=== PATIENT | male | born 1965 | race Caucasian/White ===

== ENCOUNTER 2016-06-16 15:27 | Outpatient (CLI) | payer OTHER ==
[~2016-06-16] VITALS: Ht 180.3 cm; Wt 92.7 kg
[2016-06-16 12:50] VITALS: BP 120/63; PULSE 130; RESP 18; Ht 180.3 cm; Wt 92.7 kg
--- NOTE | 2016-06-16 15:41 | PN ---
Date/Time of Note Date/Time of Note DATE: 06/16/16 TIME: 15:40 Outpatient Progress Note Chief Complaint GI bleeding/PUD/hepatic encephalopathy/cirrhosis/gallstones/anemia/alcohol abuse /malnutrition HPI GI bleed/patient had a recent GI bleed, patient was recently hospitalized, no lack stool, no nausea vomiting, no abdominal pain, PUD/no hematemesis or melena, patient has slight abdominal distention, no epigastric discomfort, no heartburn, patient had finish the medication, patient has no Protonix, Hepatitic encephalopathy/patient has history of encephalopathy, patient was taking lactulose, patient ran out of the leg shows, patient states he is off sometime, Gallstone/no nausea or vomiting, no jaundice, Anemia/no hematemesis or melena, no bruises, ecchymosis, patient did have bleeding recently, Alcohol abuse/patient history of alcohol abuse, patient has cirrhosis of liver, patient has abdominal distention, patient had alcohol a beer today before he came to the office, Malnutrition/patient has malnutrition, no nausea or vomiting, has ascites, poor appetite, Review of Systems Const: No Fever, no chills, no Wt. loss, no Fatigue, normal appetite, no diaphoresis. Eyes: No pain, no discharge, no redness, no visual change, no foreign body. ENT: No pain, no bleeding, no congestion, no sore throat, no dysphagia, no discharge or rhinitis. Lymph: No adenopathy, no tender nodes, no lymphedema. Resp: No SOB, no cough, no sputum, no wheezing, no chest pain. CV: No chest pain, no palpitaions, no STEWART, no PND, no edema. GI: Normal appetite, no pain, no nausea, no vomiting, no diarrhea, no blood, no constipation. Abdominal distention, ascites present, : No frequency, no urgency, no dysuria, no hematuria, no flank pain, no discharge, no bleeding. Musc: General eyes bone/joint pain, mild back pain, no neck pain, no knee pain, no restricted ROM. Skin: No rash, no skin lesions, no erythema, no laceration, no bruising, no pruritus. Neuro: No MCCONNELL, no dizziness, no syncope, no seizure, no focal-weakness. Endo: No polyuria, no polydypsia, no dry-skin, no temp-intolerance. Psych: No hallucinations, no depression, no anxiety, no suicidal ideation. Ext: No edema, no pain, no ulcer, no weakness. Physical Exam Vital Signs Date Time Temp Pulse Resp B/P Pulse Ox O2 Delivery O2 Flow Rate FiO2 06/16/16 12:50 100.0 130 18 120/63 98 Room Air General Appearance: A 51 year-old male who appears well-developed, well- nourished, in no acute distress. HEENT: Head normocephalic, atraumatic. Pupils equal, round, reactive to light and accommodate. Sclerae are no jaundice. Nasal turbinates pink without erythema or nasal discharge. Mucous membranes pink and moist without lesions. Oropharynx clear without any exudate or discharge. NECK: Supple. Trachea midline, No thyromegaly, No cervical lymphadenopathy, No mass, No carotid bruits, No JVD, Carotid pulses 2+ bilaterally. PULMONARY: Clear to auscultaion bilaterally, No retractions, Chest expansion symmetric bilaterally, no rales, no ronchi, no dulness on percussion. CARDIAC: Normal SI and S2, Regular rate and rythm, no murmur, gallop, or rub. GASTROINTESTINAL: Abdomen is soft, non-tender, Non Rigid, No distention, Positive bowel sounds x4 quadrants, Liver normal. Abdominal distention, ascites present, SKIN: Warm, dry, no rash, no bruise, no echmosis., No laceration, EXTREMITIES: Bilateral lower extremities normal, no edema, no phlabitus, pulse palpable, no contracture. MUSCULOSKELETAL: Spine Normal, Non-tender, Normal range of motion, No swelling, no deformity, no clubbing, or cyanosis, the patient has no edema to bilateral lower extremities, dorsalis pedis pulses palpable bilaterally. NEUROLOGIC: The patient is awake, alert, oriented, responding to yes/no questions appropriately, moving all extremities, cranial nerve intact, normal strenght, normal power, normal coordination, normal gait. Allergies Coded Allergies: aspirin (Verified Allergy, Unknown, 06/16/16) PMH GI bleed,/PUD/encephalopathy/cirrhosis/gallstones/anemia/alcohol abuse/ malnutrition/electrolyte imbalance/hepatomegaly/thrombocytopenia/leukopenia Social Hx Patient used to smoke marijuana years ago, patient has been drinking beer for many many years, patient had 1 beer today before patient came to the office, Family Hx Noncontributory Assessment/Plan Impression GI bleeding resolved/PUD/A cancer probably/cirrhosis/gallstones/anemia/alcohol abuse/malnutrition/hepatosplenomegaly/to monocytopenia and leukopenia Plan Patient education done about alcohol, told that if he does not stop drinking he is go to soon, and he has to make his decision, patient had a beer before he came to the office today, patient was to go back to smoking marijuana, explained he is replacing one bad habit with another bad habit, Patient education done about cirrhosis and GI bleed and alcoholism, patient explained that if he does not stop drinking I told him I see his end close by, patient understands it, Patient is to follow with alcohol and on numerous or any place where he can get help to stop drinking, Patient encouraged to follow with the primary care physician, if any emergency go to the emergency room Deeth CBC CMP serum ammonia level, Protonix 40 mg by mouth daily, #30 multivitamin 1 tablet by mouth daily, Lactulose 30 g by mouth daily, Medications Home Meds Reported Medications Levetiracetam* (Keppra*) 500 Mg/5 Ml Solution, 500 MG PO BID, BOTTLE 06/16/16 Thiamine* (Thiamine*) 100 Mg Tablet, 100 MG PO DAILY, TAB 06/16/16 Hydrocodone/Acetaminophen ([place] 5-325 Tablet) 1 Each Tablet, 1 EACH PO Q8, TAB 06/16/16 MILLA SINGH MD Jun 16, 2016 15:40
[2016-06-16] MEDS ORDERED: THIA100T10 PO (15:42)
[2016-06-16] MEDS ORDERED: HYDR-906 PO (15:42)
[2016-06-16] MEDS ORDERED: LEVE500S9 PO (15:42)
== END 2016-06-16 16:31 | disposition home or self-care (01) ==
LOC: DCC 15:27
PROVIDERS: ATTEND Internal Medicine
DX: K92.2 Gastrointestinal hemorrhage, unspecified (principal); K27.9 Peptic ulcer, site unspecified, unspecified as acute or chronic, without hemorrhage or perforation; K74.60 Unspecified cirrhosis of liver; K80.80 Other cholelithiasis without obstruction; D64.9 Anemia, unspecified; F10.10 Alcohol abuse, uncomplicated; F12.10 Cannabis abuse, uncomplicated
CPT/HCPCS: G0463

== ENCOUNTER 2017-02-24 20:44 | Inpatient (IN) | payer MEDICAID, OTHER ==
[~2017-02-24] VITALS: Ht 180.3 cm; Wt 95.1 kg
[~2017-02-24 20:44] MED LIST: HYDR-906 PO; LEVE500S8 PO; THIA100T10 PO
[2017-02-24 22:25] LABS: URINE BLOOD (Dip) POC Trace-lysed (NEGATIVE)
[2017-02-24] MEDS ORDERED: PANTOPRAZOLE IV 80 MG in SOD CHLORIDE 0.9% 100 ML IV STA (22:28)
[2017-02-24] MEDS ORDERED: PANTOPRAZOLE IV 80 MG in SOD CHLORIDE 0.9% 100 ML IVPB STA (22:28)
[2017-02-24] MEDS ORDERED: SOD CHLORIDE 0.9% 500 ML IV STA (22:28)
[2017-02-24] MEDS ORDERED: morphine 2 MG INJ IV STA (22:44)
[2017-02-24] MEDS ORDERED: ONDANSETRON 4 MG INJ IV STA (22:44)
[2017-02-24] MEDS ORDERED: LEVETIRACETAM 500 MG TAB PO ONE (23:00)
[2017-02-24 23:16] LABS: ABNORMAL IP MESSAGE 1; BASOPHILS % 0.4 % (0.0-2.0); EOSINOPHILS # 0.1 10^3/ul (0.0-0.5); EOSINOPHILS % 0.7 % (0.0-7.0); HEMATOCRIT 27.1 % (42.0-52.0); HEMOGLOBIN 9.3 g/dl (14.0-18.0); LYMPHOCYTES # 3.1 10^3/ul (0.8-2.9); LYMPHOCYTES % 32.4 % (15.0-51.0); MEAN CORPUSCULAR HEMOGLOBIN 27.8 pg (29.0-33.0); MEAN CORPUSCULAR HGB CONC 34.3 g/dl (32.0-37.0); MEAN CORPUSCULAR VOLUME 80.9 fl (82.0-101.0); MEAN PLATELET VOLUME 10.8 fl (7.4-10.4); MONOCYTE # 1.3 10^3/ul (0.3-0.9); MONOCYTES % 12.9 % (0.0-11.0); NEUTROPHIL # 5.2 10^3/ul (1.6-7.5); NEUTROPHILS % 53.3 % (39.0-77.0); PLATELET COUNT 92 10^3/UL (140-415); POSITIVE DIFF @See below; RED BLOOD COUNT 3.35 10^6/ul (4.70-6.10); RED CELL DISTRIBUTION WIDTH 16.4 % (11.5-14.5); WHITE BLOOD COUNT 9.7 10^3/ul (4.8-10.8)
[2017-02-24 23:20] LABS: INR 1.53; PROTIME 18.5 Sec (12.2-14.2); PT RATIO 1.4
[2017-02-24 23:21] LABS: PARTIAL THROMBOPLASTIN TIME 34.5 Sec (25.0-35.0)
[2017-02-24 23:22] LABS: ALANINE AMINOTRANSFERASE 85 IU/L (13-69); ALBUMIN 3.4 g/dl (3.3-4.9); ALBUMIN/GLOBULIN RATIO 0.91; ALKALINE PHOSPHATASE 148 IU/L (42-121); ANION GAP 12 (8-16); ASPARTATE AMINO TRANSFERASE 157 IU/L (15-46); BILIRUBIN,INDIRECT 0.9 mg/dl (0-1.1); BILIRUBIN,TOTAL 0.9 mg/dl (0.2-1.3); BLOOD UREA NITROGEN 4 mg/dl (7-20); CALCIUM 8.7 mg/dl (8.4-10.2); CARBON DIOXIDE 24 mmol/L (21-31); CHLORIDE 93 mmol/L (97-110); CREATININE 0.55 mg/dl (0.61-1.24); GLUCOSE 97 mg/dl (70-220); POTASSIUM 3.4 mmol/L (3.5-5.1); SODIUM 126 mmol/L (135-144); TOTAL PROTEIN 7.1 g/dl (6.1-8.1)
[2017-02-24 23:36] LABS: TROPONIN-I < 0.012 ng/ml (0.00-0.12)
--- NOTE | 2017-02-24 23:58 | RADRPT ---
PROCEDURE: XR Chest. CLINICAL INDICATION: Upper GI bleed. Pain. TECHNIQUE: Single frontal chest x-ray. COMPARISON: None available. FINDINGS: The lungs volumes are diminished. There are compressive changes with vascular crowding and basilar atelectasis. No pneumothorax, pleural effusion or consolidation is noted. The cardiomediastinal si lhouette is unremarkable. No acute osseous abnormality is noted. IMPRESSION: 1. Low lung volumes with compressive changes and basilar atelectasis. 2. Otherwise, no acute cardiopulmonary abnormality. RPTAT: HH .Raleigh Camacho MD, MD Date Time Electronically viewed and signed by .Raleigh Camacho MD, on 02/24/2017 23:58 .N/
[2017-02-25] VITALS (17 sets, daily range): BP systolic 108–124; BP diastolic 47–70; PULSE 74–112; RESP 12–24; TEMP 98.6; Ht 180.3 cm; Wt 95.1 kg
--- NOTE | 2017-02-25 01:21 | ERD ---
ER Documentation Chief Complaint Date/Time DATE: 02/25/17 TIME: 01:19 Chief Complaint abd pain w/ cirrhosis, states not taking seizure meds for 2 days, headache HPI This is a [age]-year-old male with history of alcoholism and cirrhosis who comes in with complaints of dark tarry stools over the past 2 days. He admits to drinking alcohol recently. No fevers no chills. Mild diffuse abdominal pain. No nausea no vomiting no chills. No other current complaints. ROS All systems reviewed and are negative except as per history of present illness. Medications Home Meds Reported Medications Levetiracetam* (Keppra*) 500 Mg/5 Ml Solution, 500 MG PO BID, BOTTLE 06/16/16 Thiamine* (Thiamine*) 100 Mg Tablet, 100 MG PO DAILY, TAB 06/16/16 Hydrocodone/Acetaminophen ([place] 5-325 Tablet) 1 Each Tablet, 1 EACH PO Q8, TAB 06/16/16 Allergies Allergies: Coded Allergies: aspirin (Verified Allergy, Unknown, 06/16/16) PMhx/Soc History of Surgery: No Anesthesia Reaction: No Hx Neurological Disorder: Yes (seizure d/o ) Hx Respiratory Disorders: No Hx Cardiac Disorders: Yes (htn, liver cirrhosis ) Hx Psychiatric Problems: No Hx Miscellaneous Medical Probl: No Hx Alcohol Use: Yes (daily ) Hx Substance Use: No Hx Tobacco Use: Yes Smoking Status: Current every day smoker Physical Exam Vitals Vital Signs Date Time Temp Pulse Resp B/P Pulse Ox O2 Delivery O2 Flow Rate FiO2 02/24/17 22:24 98.2 82 19 132/82 96 Room Air 02/24/17 20:57 98.2 124 20 127/73 98 Physical Exam Const: [] Head: Atraumatic Eyes: Normal Conjunctiva ENT: Normal External Ears, Nose and Mouth. Neck: Full range of motion..~ No meningismus. Resp: Clear to auscultation bilaterally Cardio: Regular rate and rhythm, no murmurs Abd: Soft, non tender, non distended. Normal bowel sounds Skin: No petechiae or rashes Back: No midline or flank tenderness Ext: No cyanosis, or edema Neur: Awake and alert Psych: Normal Mood and Affect Result Diagram: 02/24/17 2215 02/24/17 2215 Results 24 hrs Laboratory Tests Test 02/24/17 22:15 02/24/17 22:31 White Blood Count 9.710^3/ul Red Blood Count 3.3510^6/ul Hemoglobin 9.3g/dl Hematocrit 27.1% Mean Corpuscular Volume 80.9fl Mean Corpuscular Hemoglobin 27.8pg Mean Corpuscular Hemoglobin Concent 34.3g/dl Red Cell Distribution Width 16.4% Platelet Count 9210^3/UL Mean Platelet Volume 10.8fl Neutrophils % 53.3% Lymphocytes % 32.4% Monocytes % 12.9% Eosinophils % 0.7% Basophils % 0.4% Nucleated Red Blood Cells % 0.0/100WBC Neutrophils # 5.210^3/ul Lymphocytes # 3.110^3/ul Monocytes # 1.310^3/ul Eosinophils # 0.110^3/ul Basophils # 0.010^3/ul Nucleated Red Blood Cells # 0.010^3/ul Prothrombin Time 18.5Sec Prothrombin Time Ratio 1.4 INR International Normalized Ratio 1.53 Activated Partial Thromboplast Time 34.5Sec Sodium Level 126mmol/L Potassium Level 3.4mmol/L Chloride Level 93mmol/L Carbon Dioxide Level 24mmol/L Anion Gap 12 Blood Urea Nitrogen 4mg/dl Creatinine 0.55mg/dl Glucose Level 97mg/dl Calcium Level 8.7mg/dl Total Bilirubin 0.9mg/dl Direct Bilirubin 0.00mg/dl Indirect Bilirubin 0.9mg/dl Aspartate Amino Transf (AST/SGOT) 157IU/L Alanine Aminotransferase (ALT/SGPT) 85IU/L Alkaline Phosphatase 148IU/L Troponin I < 0.012ng/ml Total Protein 7.1g/dl Albumin 3.4g/dl Globulin 3.70g/dl Albumin/Globulin Ratio 0.91 Bedside Urine pH (LAB) 6.5 Bedside Urine Protein (LAB) Negative Bedside Urine Glucose (UA) Negative Bedside Urine Ketones (LAB) Trace Bedside Urine Blood Trace-lysed Bedside Urine Nitrite (LAB) Negative Bedside Urine Leukocyte Esterase (L Negative Current Medications Medications (Trade) Dose Ordered Sig/Dwayne Route PRN Reason Start Time Stop Time Status Last Admin Dose Admin Sodium Chloride 500 ml @ 500 mls/hr Q1H STAT IV 02/24/17 22:28 02/24/17 23:27 DC 02/24/17 22:28 Pantoprazole 80 mg/Sodium Chloride 100 ml @ 400 mls/hr ONCE STAT IVPB 02/24/17 22:28 02/24/17 22:42 DC 02/24/17 23:13 Pantoprazole/ Sodium Chloride (Protonix Iv/NS) 100 ml @ 10 mls/hr ONCE STAT IV 02/24/17 22:28 02/25/17 08:27 02/24/17 22:28 Morphine Sulfate (morphine) 2 mg ONCE STAT IV 02/24/17 22:44 02/24/17 22:45 DC 02/24/17 22:58 Ondansetron HCl (Zofran Inj) 4 mg ONCE STAT IV 02/24/17 22:44 02/24/17 22:45 DC 02/24/17 22:58 Levetiracetam (Keppra) 1,000 mg ONCE ONCE PO 02/24/17 23:00 02/24/17 23:01 DC 02/24/17 23:13 Procedures/MDM EKG: Rate/Rhythm: [Normal Sinus Rhythm] QRS, ST, T-waves: [No changes consistent w/ acute ischemia] Impression: [No evidence of ischemia or arrhythmia] Chest X-ray 1V Interpreted by me: Soft Tissue: No acute abnormalities Bones: No acute abnormalities Mediastinum/Cardiac Silhouette/Lungs: [No acute abnormalities] Medical decision-making: Very pleasant patient comes in with complaints of dark tarry stools. Given his history and low platelet count after the patient is being admitted for further evaluation and management and observation. Patient will be admitted to hospitalist. Departure Diagnosis: Primary Impression: GI bleed GI bleed type/associated pathology: unspecified gastrointestinal hemorrhage type Qualified Code: K92.2 - Gastrointestinal hemorrhage, unspecified gastrointestinal hemorrhage type Condition: Serious JENNIFERTOM FERREIRAGold Feb 25, 2017 01:21
[2017-02-25] MEDS ORDERED: SOD CHLORIDE 0.9% 1,000 ML IV SCH (02:57)
[2017-02-25] MEDS ORDERED: ONDANSETRON 4 MG INJ IV PRN (03:00)
[2017-02-25] MEDS ORDERED: morphine 2 MG INJ IV PRN (03:00)
[2017-02-25] MEDS ORDERED: NACL 0.9% 3 ML SYG IV SCH (03:00)
[2017-02-25] MEDS ORDERED: ALBUMIN HUMAN 25% 100 ML IV ONE (04:00)
[2017-02-25] MEDS ORDERED: ALBUMIN HUMAN 5% 250 ML IV ONE (04:00)
[2017-02-25] MEDS ORDERED: LORAZEPAM 2 MG INJ IV PRN (06:30)
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
[2017-02-25 08:14] LABS: HAAIG REFLEX REFLEX FILED
--- NOTE | 2017-02-25 08:26 | RADRPT ---
PROCEDURE: US Abdomen. CLINICAL INDICATION: Cirrhosis. Abdominal distension. TECHNIQUE: Multiple real-time images were acquired of the patient's abdomen and retroperitoneum ut ilizing a high resolution transducer. COMPARISON: None FINDINGS: The liver demonstrates slightly increased echogenicity, coarsened echotexture, nodular borders and e nlarged size measuring 18.6 cm. No focal hepatic lesions. Patent portal vein. Nondistended gallbladd er containing stones. Gallbladder wall is thickened measuring 6.8 mm. No intrahepatic or extrahepa tic biliary dilatation. The common bile duct measures 6 mm in maximal dimension. The visualized po rtions of the pancreas are normal. Enlarged spleen size and normal echogenicity measuring 17.8 cm.. The kidneys are normal size, and demonstrate normal echogenicity and morphology. The right kidney m easures 10.8 cm. The left kidney measures 13.5 cm. No hydronephrosis or perinephric fluid collecti ons. There are no areas of increased echogenicity to suggest nephrolithiasis. Normal caliber aorta and IVC. No peritoneal free fluid. IMPRESSION: 1. Cirrhotic appearance of the liver. 2. Splenomegaly likely secondary to portal hypertension. 3. Nondistended gallbladder with stones and gallbladder wall thickening. Recommend follow-up imagin g with HIDA scan to evaluate for cholecystitis. RPTAT:AAJJ Physician Caprice Date Time Electronically viewed and signed by Physician Caprice on 02/25/2017 08:26 /
[2017-02-25 08:57] LABS: CALCIUM 8.4 mg/dl (8.4-10.2); CREATININE 0.56 mg/dl (0.61-1.24); POTASSIUM 3.8 mmol/L (3.5-5.1)
[2017-02-25] MEDS ORDERED: MULTIVITAMINS 10 ML, THIAMINE 100 MG, FOLIC ACID 1 MG in SOD CHLORIDE 0.9% 1,000 ML IVPB SCH (09:00)
[2017-02-25 09:48] LABS: HEPATITIS B CORE ANTIBODY NEGATIVE (NEGATIVE)
[2017-02-25] MEDS ORDERED: PANTOPRAZOLE IV 80 MG in SOD CHLORIDE 0.9% 100 ML IV SCH (10:00)
[2017-02-25] MEDS: LEVETIRACETAM 500 MG (PMX) 100 ML IVPB SCH ×2 (10:04→21:25)
[2017-02-25 12:05] LABS: BARBITURATES Negative (NEGATIVE); BENZODIAZEPINES Negative (NEGATIVE); CANNABINOIDS Negative (NEGATIVE); COCAINE Negative (NEGATIVE); OPIATES Negative (NEGATIVE)
--- NOTE | 2017-02-25 12:21 | CONS ---
Date/Time of Note Date/Time of Note DATE: 02/25/17 TIME: 12:20 Assessment/Plan Assessment/Plan Additional Assessment/Plan 1. Severe hyponatremai due to hypovolemic hyponatermia 2. Upper GI bleeding with melena 3. H/o alcohol abuse, possible liver cirrhosis 4. Hypertension 5. H/o polysubstance abuse Plan: continue current care BP stable s/P GI evaluatio, plan for EGD to rule out source of UGI Bleeding IVF , Na improving will folllow up Consultation Date/Type/Reason Admit Date/Time Feb 25, 2017 at 01:22 Date of Consultation: Feb 25, 2017 Type of Consultation: Nephrology Reason for Consultation Hyponatremia Referring Provider: WILLARD KENT Hx of Present Illness pt admitted with GI bleeding, noted to have hyponatremia with Na 126,Hb 8.1- Renal has been consulted for hyponatremia Past Medical History Medical History: hypertension, other (Liver cirrhosis, Hep C, Alcohol abuse , seizure disorder ) Past Surgical History Past Surgical Hx: other (h/o previous bowel surgery as per patient ) Family History Significant Family History: no pertinent family hx Social History Alcohol Use: none Smoking Status: Never smoker Drug Use: cocaine, marijuana Exam/Review of Systems Vital Signs Vitals Vital Signs Date Time Temp Pulse Resp B/P Pulse Ox O2 Delivery O2 Flow Rate FiO2 02/25/17 11:19 98.7 105 18 116/47 96 02/25/17 01:38 Room Air Intake and Output 02/24/17 02/24/17 02/25/17 15:00 23:00 07:00 Intake Total 290 ml Output Total 400 ml Balance -110 ml Exam Constitutional: alert Head: normocephalic Eyes: nl conjunctiva, nl sclera Neck: non-tender, supple Respiratory: clear to auscultation, normal air movement Cardiovascular: nl pulses, regular rate and rhythm Gastrointestinal: other (TTp in epigastrium ), soft Musculoskeletal: nl extremities to inspection Neurological: GOVERNMENT INSTRUCTOR II-XII intact, nl mental status, nl speech, nl strength Results Result Diagram: 02/24/17 221 02/25/17 0724 Results 24 hrs Laboratory Tests Test 02/24/17 22:15 02/24/17 22:31 02/25/17 03:40 02/25/17 07:24 White Blood Count 9.7 Red Blood Count 3.35 L Hemoglobin 9.3 L Hematocrit 27.1 L Mean Corpuscular Volume 80.9 L Mean Corpuscular Hemoglobin 27.8 L Mean Corpuscular Hemoglobin Concent 34.3 Red Cell Distribution Width 16.4 H Platelet Count 92 L Mean Platelet Volume 10.8 H Neutrophils % 53.3 Lymphocytes % 32.4 Monocytes % 12.9 H Eosinophils % 0.7 Basophils % 0.4 Nucleated Red Blood Cells % 0.0 Neutrophils # 5.2 Lymphocytes # 3.1 H Monocytes # 1.3 H Eosinophils # 0.1 Basophils # 0.0 Nucleated Red Blood Cells # 0.0 Prothrombin Time 18.5 H Prothrombin Time Ratio 1.4 INR International Normalized Ratio 1.53 Activated Partial Thromboplast Time 34.5 Sodium Level 126 L 138 Potassium Level 3.4 L 3.8 Chloride Level 93 L 104 # Carbon Dioxide Level 24 25 Anion Gap 12 13 Blood Urea Nitrogen 4 L 4 L Creatinine 0.55 L 0.56 L Glucose Level 97 96 Calcium Level 8.7 8.4 Total Bilirubin 0.9 Direct Bilirubin 0.00 Indirect Bilirubin 0.9 Aspartate Amino Transf (AST/SGOT) 157 H Alanine Aminotransferase (ALT/SGPT) 85 H Alkaline Phosphatase 148 H Troponin I < 0.012 Total Protein 7.1 Albumin 3.4 Globulin 3.70 H Albumin/Globulin Ratio 0.91 Bedside Urine pH (LAB) 6.5 Bedside Urine Protein (LAB) Negative Bedside Urine Glucose (UA) Negative Bedside Urine Ketones (LAB) Trace H Bedside Urine Blood Trace-lysed H Bedside Urine Nitrite (LAB) Negative Bedside Urine Leukocyte Esterase (L Negative Ammonia 21 Ethyl Alcohol Level < 10.0 Hepatitis B Surface Antigen NEGATIVE Hepatitis B Core Total Antibody NEGATIVE Hepatitis C Antibody REACTIVE H Test 02/25/17 10:30 Urine Opiates Screen Negative Urine Barbiturates Negative Urine Amphetamines Screen Negative Urine Benzodiazepines Screen Negative Urine Cocaine Screen Negative Urine Cannabinoids Negative Medications Medications Current Medications Ondansetron HCl (Zofran Inj) 4 mg Q6H PRN IV NAUSEA AND/OR VOMITING; Start at 03:00 Lorazepam 1 mg 1 mg Q2H PRN IV AGITATION/ANXIETY; Start 02/25/17 at 06:30 Levetiracetam 100 ml @ 400 mls/hr Q12 IVPB Last administered on 02/25/17t 10: 04; Admin Dose 400 MLS/HR; Start 02/25/17 at 09:00 Pantoprazole/ Sodium Chloride (Protonix Iv/NS) 100 ml @ 10 mls/hr Q10H IV Last administered on 02/25/17t 10:14; Admin Dose 10 MLS/HR; Start 02/25/17 at 10 :00 Thiamine HCl (Vitamin B1) 500 mg BID PO ; Start 02/25/17 at 10:00 KRIS SINGH MD Feb 25, 2017 12:21
[2017-02-25 12:23] LABS: HEMATOCRIT 24.8 % (42.0-52.0); HEMOGLOBIN 8.1 g/dl (14.0-18.0)
[2017-02-25 12:44] LABS: CALCIUM 8.5 mg/dl (8.4-10.2); CREATININE 0.62 mg/dl (0.61-1.24); POTASSIUM 4.1 mmol/L (3.5-5.1)
[2017-02-25] MEDS ORDERED: FENTAnyl 50 MCG/ML VIAL ONE (13:16)
[2017-02-25] MEDS ORDERED: PROPOFOL 20 ML ONE (13:16)
[2017-02-25] MEDS ORDERED: MIDAZOLAM 1 MG/ML 2 ML INJ ONE (13:32)
--- NOTE | 2017-02-25 14:06 | CONS ---
Date/Time of Note Date/Time of Note DATE: 02/25/17 TIME: 14:06 Assessment/Plan Assessment/Plan Additional Assessment/Plan Assessment: * GI bleeding/melena * Rule out peptic ulcer disease/GERD/neoplasm versus variceal * Moderate anemia * Alcohol and polysubstance abuse * History of hepatitis C * Probable cirrhosis of the liver * History of seizure disorder Plan: * Urgent EGD to assess potential source of bleeding. Patient informed procedure including risks, benefits and alternatives. Agreeable to proceed. * Further recommendations pending patient's clinical course as well as her findings Consultation Date/Type/Reason Admit Date/Time Feb 25, 2017 at 01:22 Date of Consultation: Feb 25, 2017 Type of Consultation: GI Reason for Consultation GI bleeding/melena Constitutional: improved, no complaints Eyes: no complaints ENT: no complaints Respiratory: no complaints Cardiovascular: no complaints Gastrointestinal: no complaints, other (See HPI) Genitourinary: no complaints Musculoskeletal: no complaints Skin: no complaints Neurologic: no complaints Endocrine: no complaints Lymphatic: no complaints Psychological: nl mood/affect, no complaints Immunologic: no complaints Past Medical History * Hepatitis C * 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 * Her disorder Past Surgical History Past Surgical Hx: no surgical history Family History Significant Family History: no pertinent family hx Social History Alcohol Use: heavy Smoking Status: Never smoker Drug Use: cocaine, marijuana Exam/Review of Systems Vital Signs Vitals Vital Signs Date Time Temp Pulse Resp B/P Pulse Ox O2 Delivery O2 Flow Rate FiO2 02/25/17 12:43 99.1 89 16 108/57 97 Room Air Intake and Output 02/24/17 02/24/17 02/25/17 15:00 23:00 07:00 Intake Total 290 ml Output Total 400 ml Balance -110 ml Exam PHYSICAL EXAMINATION: GENERAL: Well developed, well nourished, alert & oriented x 3, in no acute distress SKIN: No lesions, no stigmata chronic liver disease, no evidence of bleeding diathesis LYMPHATIC: No palpable lymphadenopathy. HEAD: Normocephalic, atraumatic, no tenderness. EYES: Pupils equal reactive to light and accommodation, full extraocular movements, sclera clear, non-icteric, no discharge. EARS/NOSE AND THROAT: Ears normal, nose normal, oropharynx normal, oral membranes well hydrated without lesions. NECK: Supple, no masses, thyroid normal, JVP within normal limits, carotids normal without bruits. CHEST: Inspection within normal limits, breasts grossly normal. CARDIOVASCULAR: Heart: Regular rate and rhythm, no murmurs, gallops or rubs. Peripheral pulses present within normal limits, no cyanosis, clubbing or edemas. No pulsatile abdominal mass RESPIRATORY: Lungs clear to auscultation and percussion, no wheezing, no rubs GASTROINTESTINAL AND LIVER: Abdomen: Soft, moderate epigastric tenderness, non- distended, no hernias, no masses, no organomegaly, no ascites, no guarding, no rebound tenderness, normoactive bowel sounds. Rectal: Deferred. GENITOURINARY: [Male genitalia within normal limits.] MUSCULO-SKELETAL: Gait and station within normal limits, range of motion adequate. [NEUROLOGIC: Cranial nerves II-XII intact, Motor within normal limits, Sensory within normal limits. Reflexes within normal limits. PSYCHIATRIC: Alert & oriented x 3, mood/affect/judgement adequate] Results Result Diagram: 02/25/17 1158 02/25/17 1158 Results 24 hrs Laboratory Tests Test 02/24/17 22:15 02/24/17 22:31 02/25/17 03:40 02/25/17 07:24 White Blood Count 9.7 Red Blood Count 3.35 L Hemoglobin 9.3 L Hematocrit 27.1 L Mean Corpuscular Volume 80.9 L Mean Corpuscular Hemoglobin 27.8 L Mean Corpuscular Hemoglobin Concent 34.3 Red Cell Distribution Width 16.4 H Platelet Count 92 L Mean Platelet Volume 10.8 H Neutrophils % 53.3 Lymphocytes % 32.4 Monocytes % 12.9 H Eosinophils % 0.7 Basophils % 0.4 Nucleated Red Blood Cells % 0.0 Neutrophils # 5.2 Lymphocytes # 3.1 H Monocytes # 1.3 H Eosinophils # 0.1 Basophils # 0.0 Nucleated Red Blood Cells # 0.0 Prothrombin Time 18.5 H Prothrombin Time Ratio 1.4 INR International Normalized Ratio 1.53 Activated Partial Thromboplast Time 34.5 Sodium Level 126 L 138 Potassium Level 3.4 L 3.8 Chloride Level 93 L 104 # Carbon Dioxide Level 24 25 Anion Gap 12 13 Blood Urea Nitrogen 4 L 4 L Creatinine 0.55 L 0.56 L Glucose Level 97 96 Calcium Level 8.7 8.4 Total Bilirubin 0.9 Direct Bilirubin 0.00 Indirect Bilirubin 0.9 Aspartate Amino Transf (AST/SGOT) 157 H Alanine Aminotransferase (ALT/SGPT) 85 H Alkaline Phosphatase 148 H Troponin I < 0.012 Total Protein 7.1 Albumin 3.4 Globulin 3.70 H Albumin/Globulin Ratio 0.91 Bedside Urine pH (LAB) 6.5 Bedside Urine Protein (LAB) Negative Bedside Urine Glucose (UA) Negative Bedside Urine Ketones (LAB) Trace H Bedside Urine Blood Trace-lysed H Bedside Urine Nitrite (LAB) Negative Bedside Urine Leukocyte Esterase (L Negative Ammonia 21 Ethyl Alcohol Level < 10.0 Hepatitis B Surface Antigen NEGATIVE Hepatitis B Core Total Antibody NEGATIVE Hepatitis C Antibody REACTIVE H Test 02/25/17 10:30 02/25/17 11:58 Urine Opiates Screen Negative Urine Barbiturates Negative Urine Amphetamines Screen Negative Urine Benzodiazepines Screen Negative Urine Cocaine Screen Negative Urine Cannabinoids Negative Hemoglobin 8.1 L Hematocrit 24.8 L Sodium Level 137 Potassium Level 4.1 Chloride Level 105 Carbon Dioxide Level 27 Anion Gap 9 Blood Urea Nitrogen 5 L Creatinine 0.62 Glucose Level 88 Calcium Level 8.5 Medications Medications Current Medications Ondansetron HCl (Zofran Inj) 4 mg Q6H PRN IV NAUSEA AND/OR VOMITING; Start at 03:00 Lorazepam 1 mg 1 mg Q2H PRN IV AGITATION/ANXIETY; Start 02/25/17 at 06:30 Levetiracetam 100 ml @ 400 mls/hr Q12 IVPB Last administered on 02/25/17 10: 04; Admin Dose 400 MLS/HR; Start 02/25/17 at 09:00 Pantoprazole/ Sodium Chloride (Protonix Iv/NS) 100 ml @ 10 mls/hr Q10H IV Last administered on 02/25/17 10:14; Admin Dose 10 MLS/HR; Start 02/25/17 at 10 :00 Thiamine HCl (Vitamin B1) 500 mg BID PO ; Start 02/25/17 at 10:00 LEANDRO CASSIDY MD Feb 25, 2017 14:06
--- NOTE | 2017-02-25 14:10 | OPPN ---
Date/Time of Note Date/Time of Note DATE: 02/25/17 TIME: 14:06 Proc Note GI Procedure Date 02/25/17 Pre-procedure Diagnosis * Bleeding/melena Post-procedure Diagnosis Assessment: * 1.5 cm active duodenal ulcer, positive dark spot i.e. stigmata recent bleeding * Severe diffuse gastritis. Rule out H. pylori infection. Biopsies obtained * Severe ulcerated esophagitis. * Hiatal hernia. Plan: * Protonix 40 mg twice daily * Monitor H&H transfuse for hemoglobin less than 7.5 * Advance diet as tolerated * Abstinence critical to patient's well-being Procedure Performed: Endoscopy (Plus biopsies) Surgeon LEANDRO CASSIDY MD Paver Installer none Anesthesia Type: MAC Anesthesiologist: NATALIIA MARTELL MD Tourniquet Time none EBL none Transfusion required none Biopsy 1: Gastric antrum Grafts/Implants none Tubes/Drains none Complication(s) none Pt Condition post procedure: stable Disposition: PACU Indications: other (GI bleeding) Procedure Description After informed consent, with the patient/relatives understanding the procedure, its indications, potential risks and complications, including but not limited to : allergic reaction, bleeding, perforation or infection, and after all pertinent questions were answered to the patients satisfaction, the patient/ relatives signed witnessed informed consent. Following this, premedication was administered slowly IV push under careful cardiovascular and respiratory monitoring with pulse oximetry, automatic blood pressure, and satellite project site monitor. Once the sedative effect was achieved the patient was place in the left lateral decubitus, the panendoscope was introduced and advanced under visual control. Careful examination of the upper gastrointestinal tract, both on insertion as well as withdrawal of the instrument disclosing the following findings: ESOPHAGUS: the mucosa of the entire esophagus was carefully examined and showed the following findings: There is extensive areas of ulceration in the distal esophagus. Otherwise the mucosa appears within normal limits. There is no evidence of varices, neoplasm, or stricture. Small hiatal Hernia identified. STOMACH: Upon entrance to the stomach air was insufflated, the gastric gifford distended normally. The mucosa of the fundus, body and antrum of the stomach was carefully examined both head-on and on retroflexion, and showed the following findings: There is extensive severe erythema and edema of the mucosa of the body and antrum of the stomach. Biopsies were obtained to rule out H. pylori infection. Otherwise the mucosa appears within normal limits with no abnormalities. There is no evidence of ulcers or neoplasm. PYLORUS: The pylorus was carefully examined and showed the following findings: the pylorus appears patent and within normal limits, with no evidence of gastric outlet obstruction. DUODENUM: The duodenal mucosa was carefully examined in the duodenal bulb as well as the second portion of the duodenum and showed the following findings: There is a 1.5 cm deep duodenal ulcer with a dark spot suggestive of recent bleeding. No active bleeding is present. Otherwise the mucosa appears unremarkable with no evidence of neoplasm. Copies To: CC: LEANDRO CASSIDY MD, MORDO MD Feb 25, 2017 14:10
[2017-02-25] MEDS: THIAMINE 100 MG TAB PO SCH ×2 (14:55→21:26)
[2017-02-25 15:38] LABS: POTASSIUM 4.4 mmol/L (3.5-5.1)
[2017-02-25 15:39] LABS: CALCIUM 8.9 mg/dl (8.4-10.2); CREATININE 0.62 mg/dl (0.61-1.24)
[2017-02-25] MEDS: PANTOPRAZOLE 40 MG INJ IV SCH (18:51)
[2017-02-25 19:04] LABS: HEMATOCRIT 26.8 % (42.0-52.0); HEMOGLOBIN 8.8 g/dl (14.0-18.0)
[2017-02-26] VITALS (12 sets, daily range): BP systolic 117–131; BP diastolic 55–69; PULSE 87–99; RESP 16–20
[2017-02-26 01:38] LABS: HEMATOCRIT 23.5 % (42.0-52.0); HEMOGLOBIN 7.9 g/dl (14.0-18.0)
[2017-02-26] MEDS: PANTOPRAZOLE 40 MG INJ IV SCH ×2 (06:28→17:12)
[2017-02-26 08:18] LABS: HEMATOCRIT 23.6 % (42.0-52.0); HEMOGLOBIN 7.7 g/dl (14.0-18.0)
[2017-02-26 08:59] LABS: MAGNESIUM 1.9 mg/dl (1.7-2.5)
[2017-02-26 09:21] LABS: THYROID STIMULATING HORMONE 1.76 MIU/L (0.465-4.680)
[2017-02-26] MEDS: THIAMINE 100 MG TAB PO SCH ×2 (11:01→21:19)
[2017-02-26] MEDS: LEVETIRACETAM 500 MG (PMX) 100 ML IVPB SCH ×2 (11:01→21:19)
[2017-02-26 13:14] LABS: HEMATOCRIT 26.8 % (42.0-52.0); HEMOGLOBIN 8.7 g/dl (14.0-18.0)
--- NOTE | 2017-02-26 16:48 | CONS ---
Date/Time of Note Date/Time of Note DATE: 02/26/17 TIME: 16:46 Assessment/Plan Assessment/Plan Additional Assessment/Plan 1. Severe hyponatremai due to hypovolemic hyponatermia 2. Upper GI bleeding with melena s/p EGD showed duodenal ulcer 1.5cm with stigmata of bleeding, diffuse Gastritis and esophagitis 3. H/o alcohol abuse, possible liver cirrhosis 4. Hypertension 5. H/o polysubstance abuse Plan: continue current care BP stable s/p EGD by GI which showed duodenal ulcer 1.5cm with stigmata of bleeding, diffuse Gastritis and esophagitis Na imrpoved to normal d/c IV fluids on IV keppra Consultation Date/Type/Reason Admit Date/Time Feb 25, 2017 at 03:08 Initial Consult Date 02/25/17 Type of Consultation: NEPHROLOGY Referring Provider: WILLARD KENT 24 HR Interval Summary Free Text/Dictation Na improved to normal Exam/Review of Systems Vital Signs Vitals Vital Signs Date Time Temp Pulse Resp B/P Pulse Ox O2 Delivery O2 Flow Rate FiO2 02/26/17 16:27 87 02/26/17 15:46 98.2 17 125/55 99 02/25/17 14:22 Room Air Intake and Output 02/25/17 02/25/17 02/26/17 15:00 23:00 07:00 Intake Total 350 ml 480 ml Balance 350 ml 480 ml Results Result Diagram: 02/26/17 1254 02/25/17 1458 Results 24 hrs Laboratory Tests Test 02/25/17 18:35 02/26/17 01:10 02/26/17 07:37 02/26/17 12:54 Hemoglobin 8.8 L 7.9 L 7.7 L 8.7 L Hematocrit 26.8 L 23.5 L 23.6 L 26.8 L Hemoglobin A1c 4.8 Magnesium Level 1.9 Thyroid Stimulating Hormone (TSH) 1.760 Medications Medications Current Medications Ondansetron HCl (Zofran Inj) 4 mg Q6H PRN IV NAUSEA AND/OR VOMITING; Start at 03:00 Lorazepam 1 mg 1 mg Q2H PRN IV AGITATION/ANXIETY; Start 02/25/17 at 06:30 Levetiracetam (Keppra 500 Mg/ 100ml (Pmx)) 100 ml @ 400 mls/hr Q12 IVPB Last administered on 02/26/17 11:01; Admin Dose 400 MLS/HR; Start 02/25/17 at 09:00 Thiamine HCl (Vitamin B1) 500 mg BID PO Last administered on 02/26/17 11:01; Admin Dose 500 MG; Start 02/25/17 at 10:00 Pantoprazole (Protonix Iv) 40 mg BID@06,18 IV Last administered on 02/26/17 06 :28; Admin Dose 40 MG; Start 02/25/17 at 18:00 KRIS SINGH MD Feb 26, 2017 16:48
--- NOTE | 2017-02-26 17:42 | PN ---
Date/Time of Note Date/Time of Note DATE: 02/26/17 TIME: 17:41 Assessment/Plan VTE Prophylaxis VTE Prophylaxis Intervention: contraindicated Lines/Catheters IV Catheter Type (from Nrs): Peripheral IV Assessment/Plan Chief Complaint/Hosp Course 51 yo male wtih h/o etoh cirrhoshis who presented with upper GI bleeding PUD bleed - Monitor H/H - Continue PPI Etoh use d/o: - Counseled on cessation Cirrhosis: - compensated Discharge to home jhony tomorrow Problems: Subjective 24 Hr Interval Summary Free Text/Dictation Feeling well today No abdominal pain No bleeding No withdrawal symptoms Exam/Review of Systems Vital Signs Vitals Vital Signs Date Time Temp Pulse Resp B/P Pulse Ox O2 Delivery O2 Flow Rate FiO2 02/26/17 16:27 87 02/26/17 15:46 98.2 17 125/55 99 02/25/17 14:22 Room Air Intake and Output 02/25/17 02/25/17 02/26/17 15:00 23:00 07:00 Intake Total 350 ml 480 ml Balance 350 ml 480 ml Exam Constitutional: alert, oriented, well developed Psych: nl mood/affect, no complaints Head: atraumatic, normocephalic Eyes: EOMI, PERRL, nl conjunctiva, nl lids, nl sclera ENMT: nl external ears & nose, nl lips & teeth, nl nasal mucosa & septum Neck: non-tender, supple Respiratory: clear to auscultation, normal air movement Cardiovascular: nl pulses, regular rate and rhythm Gastrointestinal: nl liver, spleen, non-tender, soft Musculoskeletal: nl extremities to inspection, nl gait and stance Extremities: normal pulses Neurological: SPRAY MIXER II-XII intact, nl mental status, nl speech, nl strength Skin: nl turgor, No rash or lesions Lymph: nl lymph nodes Results Result Diagram: 02/26/17 1254 02/25/17 1458 Results 24 hrs Laboratory Tests Test 02/25/17 18:35 02/26/17 01:10 02/26/17 07:37 02/26/17 12:54 Hemoglobin 8.8 L 7.9 L 7.7 L 8.7 L Hematocrit 26.8 L 23.5 L 23.6 L 26.8 L Hemoglobin A1c 4.8 Magnesium Level 1.9 Thyroid Stimulating Hormone (TSH) 1.760 Medications Medications Current Medications Ondansetron HCl (Zofran Inj) 4 mg Q6H PRN IV NAUSEA AND/OR VOMITING; Start at 03:00 Lorazepam 1 mg 1 mg Q2H PRN IV AGITATION/ANXIETY; Start 02/25/17 at 06:30 Levetiracetam (Keppra 500 Mg/ 100ml (Pmx)) 100 ml @ 400 mls/hr Q12 IVPB Last administered on 02/26/17 11:01; Admin Dose 400 MLS/HR; Start 02/25/17 at 09:00 Thiamine HCl (Vitamin B1) 500 mg BID PO Last administered on 02/26/17 11:01; Admin Dose 500 MG; Start 02/25/17 at 10:00 Pantoprazole (Protonix Iv) 40 mg BID@06,18 IV Last administered on 02/26/17 17 :12; Admin Dose 40 MG; Start 02/25/17 at 18:00 NERY OWEN MD Feb 26, 2017 17:42
[2017-02-26 18:26] LABS: HEMATOCRIT 25.9 % (42.0-52.0); HEMOGLOBIN 8.5 g/dl (14.0-18.0)
[2017-02-27] VITALS (10 sets, daily range): BP systolic 100–130; BP diastolic 50–69; PULSE 83–101; RESP 18–20
[2017-02-27 01:17] LABS: HEMATOCRIT 23.6 % (42.0-52.0); HEMOGLOBIN 7.6 g/dl (14.0-18.0)
[2017-02-27] MEDS: PANTOPRAZOLE 40 MG INJ IV SCH ×2 (06:26→18:07)
[2017-02-27 07:49] LABS: HEMATOCRIT 24.7 % (42.0-52.0); HEMOGLOBIN 8.1 g/dl (14.0-18.0)
[2017-02-27] MEDS: LEVETIRACETAM 500 MG (PMX) 100 ML IVPB SCH (08:50)
[2017-02-27] MEDS: THIAMINE 100 MG TAB PO SCH ×2 (08:51→22:22)
[2017-02-27 15:37] LABS: HEMATOCRIT 24.8 % (42.0-52.0); HEMOGLOBIN 7.8 g/dl (14.0-18.0)
--- NOTE | 2017-02-27 15:45 | PN ---
Date/Time of Note Date/Time of Note DATE: 02/27/17 TIME: 15:39 Assessment/Plan VTE Prophylaxis VTE Prophylaxis Intervention: SCD's Lines/Catheters IV Catheter Type (from [facility]): Peripheral IV Urinary Cath still in place: No Assessment/Plan Assessment/Plan Assessment: * GI bleeding/melena * EGD 1.5 cm active duodenal ulcer, positive dark spot i.e. stigmata recent bleeding Severe diffuse gastritis. Rule out H. pylori infection. Biopsies obtained Severe ulcerated esophagitis. Hiatal hernia. * Moderate anemia * Alcohol and polysubstance abuse * History of hepatitis C * Probable cirrhosis of the liver * History of seizure disorder Plan * continue present management * monitor hemoglobin and hematocrit daily and transfuse per protocol * case discussed with Dr Jean * Further orders will depend on clinical course Subjective 24 Hr Interval Summary Free Text/Dictation * Course reviewed * Patient seen and examined * EGD 1.5 cm active duodenal ulcer, positive dark spot i.e. stigmata recent bleeding Severe diffuse gastritis. Rule out H. pylori infection. Biopsies obtained Severe ulcerated esophagitis. Hiatal hernia. * Biopsy Stomach, biopsy: -- Antral mucosa showing mild chronic gastritis with focal intestinal metaplasia. -- No Helicobacter pylori is identified in Giemsa stain (positive control concurrently reviewed). -- No evidence of dysplasia or malignancy. Exam/Review of Systems Vital Signs Vitals Vital Signs Date Time Temp Pulse Resp B/P Pulse Ox O2 Delivery O2 Flow Rate FiO2 02/27/17 12:13 98.0 78 18 100/50 98 02/25/17 14:22 Room Air Intake and Output 02/26/17 02/26/17 02/27/17 15:00 23:00 07:00 Intake Total 900 ml 500 ml Output Total 750 ml Balance 150 ml 500 ml Exam Constitutional: alert Neck: non-tender, supple Respiratory: clear to auscultation, normal air movement Cardiovascular: nl pulses, regular rate and rhythm Gastrointestinal: non-tender, soft Musculoskeletal: nl extremities to inspection, nl gait and stance Neurological: nl mental status Skin: nl turgor, No rash or lesions Results Result Diagram: 02/27/17 1500 02/25/17 1458 Results 24 hrs Laboratory Tests Test 02/26/17 17:58 02/27/17 00:48 02/27/17 06:51 02/27/17 15:00 Hemoglobin 8.5 L 7.6 L 8.1 L 7.8 L Hematocrit 25.9 L 23.6 L 24.7 L 24.8 L Medications Medications Current Medications Ondansetron HCl (Zofran Inj) 4 mg Q6H PRN IV NAUSEA AND/OR VOMITING; Start at 03:00 Lorazepam 1 mg 1 mg Q2H PRN IV AGITATION/ANXIETY; Start 02/25/17 at 06:30 Levetiracetam (Keppra 500 Mg/ 100ml (Pmx)) 100 ml @ 400 mls/hr Q12 IVPB Last administered on 02/27/17 08:50; Admin Dose 400 MLS/HR; Start 02/25/17 at 09:00 Thiamine HCl (Vitamin B1) 500 mg BID PO Last administered on 02/27/17 08:51; Admin Dose 500 MG; Start 02/25/17 at 10:00 Pantoprazole (Protonix Iv) 40 mg BID@06,18 IV Last administered on 02/27/17 06 :26; Admin Dose 40 MG; Start 02/25/17 at 18:00 CAROL LAI NP Feb 27, 2017 15:45
--- NOTE | 2017-02-27 16:36 | CONS ---
Date/Time of Note Date/Time of Note DATE: 02/27/17 TIME: 16:35 Assessment/Plan Assessment/Plan Additional Assessment/Plan 1. Severe hyponatremai due to hypovolemic hyponatermia 2. Upper GI bleeding with melena s/p EGD showed duodenal ulcer 1.5cm with stigmata of bleeding, diffuse Gastritis and esophagitis 3. H/o alcohol abuse, possible liver cirrhosis 4. Hypertension 5. H/o polysubstance abuse Plan: continue current care BP stable, Hb 7.8- GI following s/p EGD by GI which showed duodenal ulcer 1.5cm with stigmata of bleeding, diffuse Gastritis and esophagitis Na imrpoved to normal on IV keppra Consultation Date/Type/Reason Admit Date/Time Feb 25, 2017 at 03:08 Initial Consult Date 02/25/17 Type of Consultation: NEPHROLOGY Referring Provider: WILLARD KENT 24 HR Interval Summary Free Text/Dictation Na improved to normal< Hb 7.8 Exam/Review of Systems Vital Signs Vitals Vital Signs Date Time Temp Pulse Resp B/P Pulse Ox O2 Delivery O2 Flow Rate FiO2 02/27/17 16:24 83 02/27/17 12:13 98.0 18 100/50 98 02/25/17 14:22 Room Air Intake and Output 02/26/17 02/26/17 02/27/17 15:00 23:00 07:00 Intake Total 900 ml 500 ml Output Total 750 ml Balance 150 ml 500 ml Exam Constitutional: alert Psych: no complaints Neck: non-tender, supple Respiratory: clear to auscultation, diminished breath sounds, normal air movement Cardiovascular: nl pulses, regular rate and rhythm Gastrointestinal: non-tender, soft Musculoskeletal: nl extremities to inspection, nl gait and stance Neurological: BUCKET TURNER II-XII intact, nl mental status, nl speech, nl strength Results Result Diagram: 02/27/17 1500 02/25/17 1458 Results 24 hrs Laboratory Tests Test 02/26/17 17:58 02/27/17 00:48 02/27/17 06:51 02/27/17 15:00 Hemoglobin 8.5 L 7.6 L 8.1 L 7.8 L Hematocrit 25.9 L 23.6 L 24.7 L 24.8 L Medications Medications Current Medications Ondansetron HCl (Zofran Inj) 4 mg Q6H PRN IV NAUSEA AND/OR VOMITING; Start at 03:00 Lorazepam 1 mg 1 mg Q2H PRN IV AGITATION/ANXIETY; Start 02/25/17 at 06:30 Levetiracetam (Keppra 500 Mg/ 100ml (Pmx)) 100 ml @ 400 mls/hr Q12 IVPB Last administered on 02/27/17 08:50; Admin Dose 400 MLS/HR; Start 02/25/17 at 09:00 Thiamine HCl (Vitamin B1) 500 mg BID PO Last administered on 02/27/17 08:51; Admin Dose 500 MG; Start 02/25/17 at 10:00 Pantoprazole (Protonix Iv) 40 mg BID@06,18 IV Last administered on 02/27/17 06 :26; Admin Dose 40 MG; Start 02/25/17 at 18:00 KRIS SINGH MD Feb 27, 2017 16:36
--- NOTE | 2017-02-27 17:39 | PN ---
Date/Time of Note Date/Time of Note DATE: 02/27/17 TIME: 17:39 Assessment/Plan VTE Prophylaxis VTE Prophylaxis Intervention: SCD's Lines/Catheters IV Catheter Type (from [facility]): Peripheral IV Urinary Cath still in place: No Assessment/Plan Chief Complaint/Hosp Course 51 yo male wtih h/o etoh cirrhoshis, seizures who presented with upper GI bleeding PUD bleed - Monitor H/H - Continue PPI Etoh use d/o: - Counseled on cessation Cirrhosis: - compensated Seizures: - Continue keppra 500 BID Discharge to home tomorrow Problems: Subjective 24 Hr Interval Summary Free Text/Dictation Feels well Offered discharge today but requests to stay throuhg tomorrow Exam/Review of Systems Vital Signs Vitals Vital Signs Date Time Temp Pulse Resp B/P Pulse Ox O2 Delivery O2 Flow Rate FiO2 02/27/17 16:37 98.0 58 18 115/68 98 02/25/17 14:22 Room Air Intake and Output 02/26/17 02/26/17 02/27/17 15:00 23:00 07:00 Intake Total 900 ml 500 ml Output Total 750 ml Balance 150 ml 500 ml Results Result Diagram: 02/27/17 1500 02/25/17 1458 Results 24 hrs Laboratory Tests Test 02/26/17 17:58 02/27/17 00:48 02/27/17 06:51 02/27/17 15:00 Hemoglobin 8.5 L 7.6 L 8.1 L 7.8 L Hematocrit 25.9 L 23.6 L 24.7 L 24.8 L Medications Medications Current Medications Ondansetron HCl (Zofran Inj) 4 mg Q6H PRN IV NAUSEA AND/OR VOMITING; Start at 03:00 Lorazepam 1 mg 1 mg Q2H PRN IV AGITATION/ANXIETY; Start 02/25/17 at 06:30 Levetiracetam (Keppra 500 Mg/ 100ml (Pmx)) 100 ml @ 400 mls/hr Q12 IVPB Last administered on 02/27/17 08:50; Admin Dose 400 MLS/HR; Start 02/25/17 at 09:00 Thiamine HCl (Vitamin B1) 500 mg BID PO Last administered on 02/27/17 08:51; Admin Dose 500 MG; Start 02/25/17 at 10:00 Pantoprazole (Protonix Iv) 40 mg BID@,18 IV Last administered on 02/27/17t 06 :26; Admin Dose 40 MG; Start 02/25/17 at 18:00 NERY OWEN MD Feb 27, 2017 17:39
[2017-02-27] MEDS ORDERED: ACETAMINOPHEN 500 MG TAB PO STA (17:52)
[2017-02-27] MEDS ORDERED: ACETAMINOPHEN 500 MG TAB ONE (17:55)
[2017-02-27] MEDS: LEVETIRACETAM 500 MG TAB PO SCH (22:21)
[2017-02-27] MEDS: ZOLPIDEM 5 MG TAB PO PRN (23:06)
[2017-02-27 23:15] LABS: HEMATOCRIT 28.4 % (42.0-52.0)
[2017-02-28] VITALS (12 sets, daily range): BP systolic 109–125; BP diastolic 52–74; PULSE 79–120; RESP 16–18
[2017-02-28] MEDS: PANTOPRAZOLE 40 MG INJ IV SCH ×2 (06:29→17:41)
[2017-02-28 07:20] LABS: HEMATOCRIT 25.5 % (42.0-52.0); HEMOGLOBIN 8.3 g/dl (14.0-18.0)
[2017-02-28] MEDS: THIAMINE 100 MG TAB PO SCH ×2 (08:38→21:13)
[2017-02-28] MEDS: LEVETIRACETAM 500 MG TAB PO SCH ×2 (08:38→21:13)
[2017-02-28] MEDS ORDERED: PANT20TA3 PO (11:38)
--- NOTE | 2017-02-28 12:14 | PN ---
Date/Time of Note Date/Time of Note DATE: 02/28/17 TIME: 12:14 Assessment/Plan VTE Prophylaxis VTE Prophylaxis Intervention: SCD's Lines/Catheters IV Catheter Type (from [facility]): [place] Lock Urinary Cath still in place: No Assessment/Plan Chief Complaint/Hosp Course Assessment: * GI bleeding/melena * EGD 1.5 cm active duodenal ulcer, positive dark spot i.e. stigmata recent bleeding Severe diffuse gastritis. Rule out H. pylori infection. Biopsies obtained Severe ulcerated esophagitis. Hiatal hernia. * Moderate anemia * Alcohol and polysubstance abuse * History of hepatitis C * Probable cirrhosis of the liver * History of seizure disorder Plan * continue present management * monitor hemoglobin and hematocrit daily and transfuse per protocol * Further orders will depend on clinical course Subjective Subjective 24 Hr Interval Summary Free Text/Dictation * Course reviewed * Patient seen and examined * Comfortable, tolerating diet * No overt gastrointestinal bleeding * Awaiting placement Exam Constitutional: alert Neck: non-tender, supple Respiratory: clear to auscultation, normal air movement Cardiovascular: nl pulses, regular rate and rhythm Gastrointestinal: non-tender, soft Musculoskeletal: nl extremities to inspection, nl gait and stance Neurological: nl mental status Skin: nl turgor, No rash or lesions Problems: Exam/Review of Systems Vital Signs Vitals Vital Signs Date Time Temp Pulse Resp B/P Pulse Ox O2 Delivery O2 Flow Rate FiO2 02/28/17 12:01 98.0 73 18 109/52 98 02/25/17 14:22 Room Air Intake and Output 02/27/17 02/27/17 02/28/17 15:00 23:00 07:00 Intake Total 400 ml 800 ml Balance 400 ml 800 ml Results Result Diagram: 02/28/17 0641 02/25/17 1458 Results 24 hrs Laboratory Tests Test 02/27/17 15:00 02/27/17 22:39 02/28/17 00:41 02/28/17 06:41 Hemoglobin 7.8 L 9.0 L 8.0 L 8.3 L Hematocrit 24.8 L 28.4 L 25.0 L 25.5 L Medications Medications Current Medications Ondansetron HCl (Zofran Inj) 4 mg Q6H PRN IV NAUSEA AND/OR VOMITING; Start at 03:00 Lorazepam (Ativan) 1 mg Q2H PRN IV AGITATION/ANXIETY; Start 02/25/17 at 06:30 Thiamine HCl (Vitamin B1) 500 mg BID PO Last administered on 02/28/17 08:38; Admin Dose 500 MG; Start 02/25/17 at 10:00 Pantoprazole (Protonix Iv) 40 mg BID@06,18 IV Last administered on 02/28/17 06 :29; Admin Dose 40 MG; Start 02/25/17 at 18:00 Levetiracetam (Keppra) 500 mg BID PO Last administered on 02/28/17 08:38; Admin Dose 500 MG; Start 02/27/17 at 21:00 Zolpidem Tartrate (Ambien) 5 mg HS PRN PO INSOMNIA Last administered on 23:06; Admin Dose 5 MG; Start 02/27/17 at 23:00 LEANDRO CASSIDY MD Feb 28, 2017 12:14
[2017-02-28 12:46] LABS: HEMOGLOBIN 8.1 g/dl (14.0-18.0)
--- NOTE | 2017-02-28 15:46 | DS ---
Date/Time of Note Date/Time of Note DATE: 02/28/17 TIME: 15:44 Discharge Summary Admission/Discharge Info Admit Date/Time Feb 25, 2017 at 03:08 Discharge Date/Time Discharge Diagnosis PUD Patient Condition: Good Hx of Present Illness Chief complaint: Dark stools a day his is a 48 year 1-year-old male with history of alcoholism and cirrhosis who comes in with complaints of dark tarry stools over the past 2 days. He admits to drinking alcohol recently. States that approximately 2 weeks ago he was in detox rehabilitation center for his drug use and alcohol drinking. However patient states that he relapsed and started drinking again and also thinks that he did smoke weed and possibly cocaine over the last 2 weeks. No fevers no chills. Mild diffuse abdominal pain. No nausea no vomiting no chills. No other current complaints. Allergies: NKDA Medications: See AUG Hospital Course 51 yo male wtih h/o etoh cirrhoshis, seizures who presented with upper GI bleeding His H/H was stable without evidence of further bleeding He underwent endsocopy by Dr Jean showing PUD as likely culprit. Pathology was negative for H Pylori He was precribed a PPI He was monitored in house for 3 days without further bleeding Discharged to further care as an outpatinet Home Meds Reported Medications Levetiracetam* (Keppra*) 500 Mg/5 Ml Solution, 500 MG PO BID, BOTTLE 06/16/16 Thiamine* (Thiamine*) 100 Mg Tablet, 100 MG PO DAILY, TAB 06/16/16 Hydrocodone/Acetaminophen ([employer] 5-325 Tablet) 1 Each Tablet, 1 EACH PO Q8, TAB 06/16/16 Primary Care Provider Care Physician No Primary Pending Labs Laboratory Tests Test 02/27/17 22:39 02/28/17 00:41 02/28/17 06:41 02/28/17 12:14 Hemoglobin 9.0g/dl (14.0-18.0) 8.0g/dl (14.0-18.0) 8.3g/dl (14.0-18.0) 8.1g/dl (14.0-18.0) Hematocrit 28.4% (42.0-52.0) 25.0% (42.0-52.0) 25.5% (42.0-52.0) 26.0% (42.0-52.0) NERY OWEN MD Feb 28, 2017 15:46
--- NOTE | 2017-02-28 19:46 | CONS ---
Date/Time of Note Date/Time of Note DATE: 02/28/17 TIME: 19:46 Assessment/Plan Assessment/Plan Additional Assessment/Plan 1. Severe hyponatremai due to hypovolemic hyponatermia 2. Upper GI bleeding with melena s/p EGD showed duodenal ulcer 1.5cm with stigmata of bleeding, diffuse Gastritis and esophagitis 3. H/o alcohol abuse, possible liver cirrhosis 4. Hypertension 5. H/o polysubstance abuse Plan: continue current care BP stable, Hb 8.1- GI following s/p EGD by GI which showed duodenal ulcer 1.5cm with stigmata of bleeding, diffuse Gastritis and esophagitis Na imrpoved to normal on keppra Consultation Date/Type/Reason Admit Date/Time Feb 25, 2017 at 03:08 Initial Consult Date 02/25/17 Type of Consultation: NEPHROLOGY Referring Provider: WILLARD KENT 24 HR Interval Summary Free Text/Dictation doing ok, BP stable, afebrile Exam/Review of Systems Vital Signs Vitals Vital Signs Date Time Temp Pulse Resp B/P Pulse Ox O2 Delivery O2 Flow Rate FiO2 02/28/17 19:29 97.8 101 17 125/74 96 02/25/17 14:22 Room Air Intake and Output 02/27/17 02/27/17 02/28/17 15:00 23:00 07:00 Intake Total 400 ml 800 ml Balance 400 ml 800 ml Results Result Diagram: 02/28/17 1214 02/25/17 1458 Results 24 hrs Laboratory Tests Test 02/27/17 22:39 02/28/17 00:41 02/28/17 06:41 02/28/17 12:14 Hemoglobin 9.0 L 8.0 L 8.3 L 8.1 L Hematocrit 28.4 L 25.0 L 25.5 L 26.0 L Medications Medications Current Medications Ondansetron HCl (Zofran Inj) 4 mg Q6H PRN IV NAUSEA AND/OR VOMITING; Start at 03:00 Lorazepam (Ativan) 1 mg Q2H PRN IV AGITATION/ANXIETY; Start 02/25/17 at 06:30 Thiamine HCl (Vitamin B1) 500 mg BID PO Last administered on 02/28/17t 08:38; Admin Dose 500 MG; Start 02/25/17 at 10:00 Pantoprazole (Protonix Iv) 40 mg BID@,18 IV Last administered on 02/28/17 17 :41; Admin Dose 40 MG; Start 02/25/17 at 18:00 Levetiracetam (Keppra) 500 mg BID PO Last administered on 02/28/17 08:38; Admin Dose 500 MG; Start 02/27/17 at 21:00 Zolpidem Tartrate (Ambien) 5 mg HS PRN PO INSOMNIA Last administered on 23:06; Admin Dose 5 MG; Start 02/27/17 at 23:00 KRIS SINGH MD Feb 28, 2017 19:46
[2017-02-28] MEDS: ZOLPIDEM 5 MG TAB PO PRN (21:41)
[2017-03-01] VITALS (8 sets, daily range): BP systolic 96–130; BP diastolic 53–76; PULSE 95–120; RESP 18
[2017-03-01] MEDS: PANTOPRAZOLE 40 MG INJ IV SCH (05:49)
[2017-03-01 08:31] LABS: ABNORMAL IP MESSAGE 1; BASOPHILS % 0.3 % (0.0-2.0); EOSINOPHILS # 0.1 10^3/ul (0.0-0.5); HEMATOCRIT 25.9 % (42.0-52.0); HEMOGLOBIN 8.2 g/dl (14.0-18.0); LYMPHOCYTES # 0.9 10^3/ul (0.8-2.9); MEAN CORPUSCULAR HEMOGLOBIN 26.8 pg (29.0-33.0); MEAN CORPUSCULAR HGB CONC 31.7 g/dl (32.0-37.0); MEAN CORPUSCULAR VOLUME 84.6 fl (82.0-101.0); MEAN PLATELET VOLUME 10.7 fl (7.4-10.4); MONOCYTE # 0.5 10^3/ul (0.3-0.9); NEUTROPHILS % 56.4 % (39.0-77.0); POSITIVE DIFF @See below; RED BLOOD COUNT 3.06 10^6/ul (4.70-6.10); WHITE BLOOD COUNT 3.5 10^3/ul (4.8-10.8)
[2017-03-01 08:41] LABS: CALCIUM 8.4 mg/dl (8.4-10.2); CREATININE 0.57 mg/dl (0.61-1.24); POTASSIUM 3.7 mmol/L (3.5-5.1)
[2017-03-01 08:52] LABS: INR 1.48; PT RATIO 1.4
[2017-03-01 08:53] LABS: PARTIAL THROMBOPLASTIN TIME 36.3 Sec (25.0-35.0)
[2017-03-01] MEDS: LEVETIRACETAM 500 MG TAB PO SCH (09:11)
[2017-03-01] MEDS: THIAMINE 100 MG TAB PO SCH (09:12)
[2017-03-01 10:05] LABS: PLATELET COUNT 53 10^3/UL (140-415)
--- NOTE | 2017-03-01 13:21 | CONS ---
Date/Time of Note Date/Time of Note DATE: 03/01/17 TIME: 13:20 Assessment/Plan Assessment/Plan Additional Assessment/Plan 1. Severe hyponatremai due to hypovolemic hyponatermia 2. Upper GI bleeding with melena s/p EGD showed duodenal ulcer 1.5cm with stigmata of bleeding, diffuse Gastritis and esophagitis 3. H/o alcohol abuse, possible liver cirrhosis 4. Hypertension 5. H/o polysubstance abuse Plan: continue current care BP stable, Hb 8.2- GI following s/p EGD by GI which showed duodenal ulcer 1.5cm with stigmata of bleeding, diffuse Gastritis and esophagitis Na imrpoved to normal on keppra will sign off, stable for d/c Consultation Date/Type/Reason Admit Date/Time Feb 25, 2017 at 03:08 Initial Consult Date 02/25/17 Type of Consultation: NEPHROLOGY Referring Provider: WILLARD KENT Exam/Review of Systems Vital Signs Vitals Vital Signs Date Time Temp Pulse Resp B/P Pulse Ox O2 Delivery O2 Flow Rate FiO2 03/01/17 12:10 102 03/01/17 12:00 98.0 18 109/59 98 02/25/17 14:22 Room Air Intake and Output 02/28/17 02/28/17 03/01/17 15:00 23:00 07:00 Intake Total 550 ml 1200 ml 800 ml Output Total 1400 ml Balance 550 ml -200 ml 800 ml Exam Constitutional: alert Psych: no complaints ENMT: nl external ears & nose Neck: non-tender, supple Respiratory: clear to auscultation, diminished breath sounds, normal air movement Cardiovascular: nl pulses, regular rate and rhythm Gastrointestinal: non-tender, soft Neurological: ROD PULLER II-XII intact, nl mental status, nl speech, nl strength Results Result Diagram: 03/01/17 0656 03/01/17 0655 Results 24 hrs Laboratory Tests Test 03/01/17 06:55 03/01/17 06:56 Prothrombin Time 18.0 H Prothrombin Time Ratio 1.4 INR International Normalized Ratio 1.48 Activated Partial Thromboplast Time 36.3 H Sodium Level 139 Potassium Level 3.7 Chloride Level 107 Carbon Dioxide Level 26 Anion Gap 10 Blood Urea Nitrogen 5 L Creatinine 0.57 L Glucose Level 104 Calcium Level 8.4 Lipase 148 White Blood Count 3.5 #L Red Blood Count 3.06 L Hemoglobin 8.2 L Hematocrit 25.9 L Mean Corpuscular Volume 84.6 Mean Corpuscular Hemoglobin 26.8 L Mean Corpuscular Hemoglobin Concent 31.7 L Red Cell Distribution Width 17.0 H Platelet Count 53 #L Mean Platelet Volume 10.7 H Neutrophils % 56.4 Lymphocytes % 24.0 Monocytes % 15.0 H Eosinophils % 4.0 Basophils % 0.3 Nucleated Red Blood Cells % 0.0 Neutrophils # 2.0 Lymphocytes # 0.9 Monocytes # 0.5 Eosinophils # 0.1 Basophils # 0.0 Nucleated Red Blood Cells # 0.0 Medications Medications Current Medications Ondansetron HCl (Zofran Inj) 4 mg Q6H PRN IV NAUSEA AND/OR VOMITING; Start at 03:00 Lorazepam (Ativan) 1 mg Q2H PRN IV AGITATION/ANXIETY; Start 02/25/17 at 06:30 Thiamine HCl (Vitamin B1) 500 mg BID PO Last administered on 03/01/17 09:12; Admin Dose 500 MG; Start 02/25/17 at 10:00 Pantoprazole (Protonix Iv) 40 mg BID@,18 IV Last administered on 03/01/17 05 :49; Admin Dose 40 MG; Start 02/25/17 at 18:00 Levetiracetam (Keppra) 500 mg BID PO Last administered on 03/01/17 09:11; Admin Dose 500 MG; Start 02/27/17 at 21:00 Zolpidem Tartrate (Ambien) 5 mg HS PRN PO INSOMNIA Last administered on 21:41; Admin Dose 5 MG; Start 02/27/17 at 23:00 KRIS SINGH MD Mar 01, 2017 13:21
--- NOTE | 2017-03-01 14:13 | PN ---
Date/Time of Note Date/Time of Note DATE: 03/01/17 TIME: 14:12 Assessment/Plan VTE Prophylaxis VTE Prophylaxis Intervention: SCD's Lines/Catheters IV [facility]ter Type (from [facility]): Saline Lock Urinary Cath still in place: No Assessment/Plan Chief Complaint/Hosp Course Assessment: * GI bleeding/melena * EGD 1.5 cm active duodenal ulcer, positive dark spot i.e. stigmata recent bleeding Severe diffuse gastritis. Rule out H. pylori infection. Biopsies obtained Severe ulcerated esophagitis. Hiatal hernia. * Moderate anemia * Alcohol and polysubstance abuse * History of hepatitis C * Probable cirrhosis of the liver * History of seizure disorder Plan * Agree with outpatient management Subjective Subjective 24 Hr Interval Summary Free Text/Dictation * Course reviewed * Patient seen and examined * Comfortable, tolerating diet * No overt gastrointestinal bleeding * Being discharged today Exam Constitutional: alert Neck: non-tender, supple Respiratory: clear to auscultation, normal air movement Cardiovascular: nl pulses, regular rate and rhythm Gastrointestinal: non-tender, soft Musculoskeletal: nl extremities to inspection, nl gait and stance Neurological: nl mental status Skin: nl turgor, No rash or lesions Problems: Exam/Review of Systems Vital Signs Vitals Vital Signs Date Time Temp Pulse Resp B/P Pulse Ox O2 Delivery O2 Flow Rate FiO2 03/01/17 12:10 102 03/01/17 12:00 98.0 18 109/59 98 02/25/17 14:22 Room Air Intake and Output 02/28/17 02/28/17 03/01/17 15:00 23:00 07:00 Intake Total 550 ml 1200 ml 800 ml Output Total 1400 ml Balance 550 ml -200 ml 800 ml Results Result Diagram: 03/01/17 0656 03/01/17 0655 Results 24 hrs Laboratory Tests Test 03/01/17 06:55 03/01/17 06:56 Prothrombin Time 18.0 H Prothrombin Time Ratio 1.4 INR International Normalized Ratio 1.48 Activated Partial Thromboplast Time 36.3 H Sodium Level 139 Potassium Level 3.7 Chloride Level 107 Carbon Dioxide Level 26 Anion Gap 10 Blood Urea Nitrogen 5 L Creatinine 0.57 L Glucose Level 104 Calcium Level 8.4 Lipase 148 White Blood Count 3.5 #L Red Blood Count 3.06 L Hemoglobin 8.2 L Hematocrit 25.9 L Mean Corpuscular Volume 84.6 Mean Corpuscular Hemoglobin 26.8 L Mean Corpuscular Hemoglobin Concent 31.7 L Red Cell Distribution Width 17.0 H Platelet Count 53 #L Mean Platelet Volume 10.7 H Neutrophils % 56.4 Lymphocytes % 24.0 Monocytes % 15.0 H Eosinophils % 4.0 Basophils % 0.3 Nucleated Red Blood Cells % 0.0 Neutrophils # 2.0 Lymphocytes # 0.9 Monocytes # 0.5 Eosinophils # 0.1 Basophils # 0.0 Nucleated Red Blood Cells # 0.0 Medications Medications Current Medications Ondansetron HCl (Zofran Inj) 4 mg Q6H PRN IV NAUSEA AND/OR VOMITING; Start at 03:00 Lorazepam (Ativan) 1 mg Q2H PRN IV AGITATION/ANXIETY; Start 02/25/17 at 06:30 Thiamine HCl (Vitamin B1) 500 mg BID PO Last administered on 03/01/17 09:12; Admin Dose 500 MG; Start 02/25/17 at 10:00 Pantoprazole (Protonix Iv) 40 mg BID@,18 IV Last administered on 03/01/17 05 :49; Admin Dose 40 MG; Start 02/25/17 at 18:00 Levetiracetam (Keppra) 500 mg BID PO Last administered on 03/01/17 09:11; Admin Dose 500 MG; Start 02/27/17 at 21:00 Zolpidem Tartrate (Ambien) 5 mg HS PRN PO INSOMNIA Last administered on 21:41; Admin Dose 5 MG; Start 02/27/17 at 23:00 LEANDRO CASSIDY MD Mar 01, 2017 14:13
--- NOTE | 2017-03-01 14:55 | PN ---
Date/Time of Note Date/Time of Note DATE: 03/01/17 TIME: 14:54 Assessment/Plan VTE Prophylaxis VTE Prophylaxis Intervention: contraindicated Lines/Catheters [facility] Saline [facility] Urinary Cath still in place: No Assessment/Plan Chief Complaint/Hosp Course 51 yo male wtih h/o etoh cirrhoshis, seizures who presented with upper GI bleeding His H/H was stable without evidence of further bleeding He underwent endsocopy by Dr Jean showing PUD as likely culprit. Pathology was negative for H Pylori He was precribed a PPI He was monitored in house for 3 days without further bleeding Discharged to further care as an outpatinet Problems: Subjective 24 Hr Interval Summary Free Text/Dictation Patient stayed in hosptial as unable to access homeless [facility] yesterday Advised he needs to go today Exam/Review of Systems Vital Signs Vitals Vital Signs Date Time Temp Pulse Resp B/P Pulse Ox O2 Delivery O2 Flow Rate FiO2 03/01/17 12:10 102 03/01/17 12:00 98.0 18 109/59 98 02/25/17 14:22 Room Air Intake and Output 02/28/17 02/28/17 03/01/17 15:00 23:00 07:00 Intake Total 550 ml 1200 ml 800 ml Output Total 1400 ml Balance 550 ml -200 ml 800 ml Results Result Diagram: 03/01/17 0656 03/01/17 0655 Results 24 hrs Laboratory Tests Test 03/01/17 06:55 03/01/17 06:56 Prothrombin Time 18.0 H Prothrombin Time Ratio 1.4 INR International Normalized Ratio 1.48 Activated Partial Thromboplast Time 36.3 H Sodium Level 139 Potassium Level 3.7 Chloride Level 107 Carbon Dioxide Level 26 Anion Gap 10 Blood Urea Nitrogen 5 L Creatinine 0.57 L Glucose Level 104 Calcium Level 8.4 Lipase 148 White Blood Count 3.5 #L Red Blood Count 3.06 L Hemoglobin 8.2 L Hematocrit 25.9 L Mean Corpuscular Volume 84.6 Mean Corpuscular Hemoglobin 26.8 L Mean Corpuscular Hemoglobin Concent 31.7 L Red Cell Distribution Width 17.0 H Platelet Count 53 #L Mean Platelet Volume 10.7 H Neutrophils % 56.4 Lymphocytes % 24.0 Monocytes % 15.0 H Eosinophils % 4.0 Basophils % 0.3 Nucleated Red Blood Cells % 0.0 Neutrophils # 2.0 Lymphocytes # 0.9 Monocytes # 0.5 Eosinophils # 0.1 Basophils # 0.0 Nucleated Red Blood Cells # 0.0 Medications Medications Current Medications Ondansetron HCl (Zofran Inj) 4 mg Q6H PRN IV NAUSEA AND/OR VOMITING; Start at 03:00 Lorazepam (Ativan) 1 mg Q2H PRN IV AGITATION/ANXIETY; Start 02/25/17 at 06:30 Thiamine HCl (Vitamin B1) 500 mg BID PO Last administered on 03/01/17 09:12; Admin Dose 500 MG; Start 02/25/17 at 10:00 Pantoprazole (Protonix Iv) 40 mg BID@,18 IV Last administered on 03/01/17 05 :49; Admin Dose 40 MG; Start 02/25/17 at 18:00 Levetiracetam (Keppra) 500 mg BID PO Last administered on 03/01/17 09:11; Admin Dose 500 MG; Start 02/27/17 at 21:00 Zolpidem Tartrate (Ambien) 5 mg HS PRN PO INSOMNIA Last administered on 21:41; Admin Dose 5 MG; Start 02/27/17 at 23:00 NERY OWEN MD Mar 01, 2017 14:55
== END 2017-03-01 14:26 | disposition home or self-care (01) | DRG 378 ==
LOC: E/R 20:44 → TEL 02-25 01:22 → OBSVTOIN 02-25 03:08 → TEL 02-27 05:15
PROVIDERS: ADMIT Family Medicine; ATTEND Family Medicine
PROC: 0DB68ZX Excision of Stomach, Via Natural or Artificial Opening Endoscopic, Diagnostic (ICD-10-PCS; principal; 2017-02-25 12:00)
DX: K26.4 Chronic or unspecified duodenal ulcer with hemorrhage (principal); D62 Acute posthemorrhagic anemia; E87.1 Hypo-osmolality and hyponatremia; K74.60 Unspecified cirrhosis of liver; K22.10 Ulcer of esophagus without bleeding; E86.1 Hypovolemia; I10 Essential (primary) hypertension; F10.10 Alcohol abuse, uncomplicated; F12.90 Cannabis use, unspecified, uncomplicated; F14.90 Cocaine use, unspecified, uncomplicated; B19.20 Unspecified viral hepatitis C without hepatic coma; G40.909 Epilepsy, unspecified, not intractable, without status epilepticus; K29.70 Gastritis, unspecified, without bleeding; K44.9 Diaphragmatic hernia without obstruction or gangrene; Z72.0 Tobacco use
CPT/HCPCS: 36415; 71010; 76700; 80048; 80053; 80306; 80307; 81003; 82140; 83036; 83690; 83735; 84443; 84484; 85014; 85018; 85025; 85610; 85730; 86704; 86709; 86803; 86850; 86900; 86901; 87081; 87340; 88305; 88312; 93005; 96374; 96375; 96376; G0378; C9113; J1953; J2250; J2270; J2405; J3010; J3411; J7030; J7040; P9045; P9047

== ENCOUNTER 2017-03-09 15:18 | Emergency (ER) | payer MEDICAID ==
[~2017-03-09] VITALS: Ht 170.2 cm; Wt 70.0 kg
[~2017-03-09 15:18] MED LIST changes: -HYDR-906 PO; +PANT20TA3 PO; -THIA100T10 PO
[2017-03-09 15:47] VITALS: Ht 170.2 cm; Wt 70.0 kg
[2017-03-09] MEDS ORDERED: SOD CHLORIDE 0.9% 1,000 ML IV STA (15:50)
[2017-03-09] MEDS ORDERED: PROP20TA4 PO (17:27)
[2017-03-09] MEDS ORDERED: LEVE-5 PO (17:28)
[2017-03-09] MEDS ORDERED: SPIR100T31 PO (17:28)
[2017-03-09] MEDS ORDERED: CYAN500T46 PO (17:29)
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
--- NOTE | 2017-03-09 18:19 | RADRPT ---
PROCEDURE: CT Brain without contrast. CLINICAL INDICATION: Trauma, headache. TECHNIQUE: A CT of the brain was performed utilizing axial sections from the skull base through th e vertex without contrast. Multiplanar re-formations were generated. Images were reviewed on a high- resolution PACS workstation. CTDIvol: 40.11 mGy. DLP: 720.23 mGy-cm. One or more of the following dose reduction techniques were used: - Automated exposure control. - Adjustment of the mA and/or kV according to patient size. - Use of iterative reconstruction technique. COMPARISON: None available FINDINGS: There is mild generalized volume loss. No hydrocephalus is seen. There is no mass effect. No acute intracranial hemorrhage is identified. There is no extra-axial collection. No CT evidence of acute infarction is identified. There is patchy low attenuation in the supratentorial white matter, a non specific finding which most likely represents the sequela of mild chronic microvascular ischemic dis ease. There is mild to moderate mucosal disease in the paranasal sinuses. The visualized mastoid air cells are clear. The ossesous structures are unremarkable. The extracranial soft tissues are unremarkable . IMPRESSION: 1. No acute intracranial pathology. 2. Mild generalized volume loss. 3. Mild chronic microvascular ischemic changes. RPTAT: HTAR .Alfredo Cortez MD, Date Time Electronically viewed and signed by .Alfredo Cortez MD, MD on 03/09/2017 18:19 .R/
--- NOTE | 2017-03-09 18:24 | RADRPT ---
PROCEDURE: CT cervical spine without contrast. CLINICAL INDICATION: Trauma, neck pain. TECHNIQUE: A CT of the cervical spine was performed without intravenous contrast. Coronal and sag ittal reformats were generated. CTDIvol: 20.19 mGy. DLP: 441.57 mGy-cm. One or more of the following dose reduction techniques were used: - Automated exposure control. - Adjustment of the mA and/or kV according to patient size. - Use of iterative reconstruction technique. COMPARISON: None. FINDINGS: There is a normal cervical lordosis. There is grade 1 degenerative C4 anterolisthesis (2 mm). The vertebral body heights are maintained. No fracture or subluxation is seen. The prevertebral soft t issues are normal. There are moderate neural foraminal narrowings on the left at C4-C5 and bilaterally at C5-C6. Modera te degenerate facet arthrosis is noted on the right at C2-C3 and on the left at C4-C5. There is mode rate degenerative disc disease at C5-C6 and C6-C7 without significant spinal canal stenosis. The soft tissue structures of the neck are unremarkable. IMPRESSION: 1. No fracture or subluxation of the cervical spine. 2. Grade 1 degenerative C4 anterolisthesis. 3. Moderate neural foraminal narrowings on the left at C4-C5 and bilaterally at C5-C6. RPTAT: HTAR .Alfredo Cortez MD, MD Date Time Electronically viewed and signed by .Alfredo Cortez MD, MD on 03/09/2017 18:23 .R/
[2017-03-09 20:36] VITALS: BP 144/72; PULSE 77; RESP 17; TEMP 98.3
== END 2017-03-09 20:37 | disposition home or self-care (01) ==
LOC: E/R 15:18
DX: F10.920 Alcohol use, unspecified with intoxication, uncomplicated (principal); S09.90XA Unspecified injury of head, initial encounter; S60.512A Abrasion of left hand, initial encounter; I10 Essential (primary) hypertension; F17.210 Nicotine dependence, cigarettes, uncomplicated; R51 Headache; W01.0XXA Fall on same level from slipping, tripping and stumbling without subsequent striking against object, initial encounter; Y92.9 Unspecified place or not applicable
CPT/HCPCS: 70450; 72125; J7030; Z7502